=== PATIENT | male | born 1965 | race Caucasian/White ===

== ENCOUNTER 2021-06-28 08:22 | Day surgery (SDCO) | payer OTHER ==
[~2021-06-28] VITALS: Ht 185.4 cm; Wt 129.4 kg
[2021-06-28 09:03] LABS: BASOPHIL 0.4 % (0-2); EOSINOPHIL 2.3 % (0-5); HCT 38.5 % (42.0-52.0); HGB 11.9 g/dl (13.2-18.0); MCH 28.1 pg (25.0-31.0); MCHC 30.9 g/dL (32.0-36.0); MONOCYTE 8.2 % (0-12); MPV 10.6 fL (6.0-9.5); NEUTROPHIL 57.5 % (41-80); NRBC 0; PLT 221 K/uL (150-400); RBC 4.23 M/uL (4.70-6.00); RDW 15.3 % (11.5-14.0); WBC 4.8 K/uL (4.0-10.5)
[2021-06-28 09:08] LABS: ALBUMIN 3.3 g/dL (3.4-5.0); BILIRUBIN - TOTAL 0.8 mg/dL (0.2-1.0); BUN/CREAT RATIO (CALC) 24.8 RATIO; CREATININE 1.05 mg/dL (0.67-1.17); GLOBULIN (CALCULATION) 5.4 g/dL; TOTAL PROTEIN 8.7 g/dL (6.4-8.2)
[2021-06-28 09:25] LABS: LACTIC ACID 1.2 mmol/L (0.4-1.9)
[2021-06-28 13:25] LABS: BILIRUBIN NEGATIVE (NEGATIVE); BLOOD 2+ Ery/uL (NEGATIVE); CLARITY CLEAR (CLEAR); COLOR YELLOW (YELLOW); GLUCOSE (U) NORMAL (NORMAL); LEUKOCYTES NEGATIVE Leu/uL (NEGATIVE); NITRITE NEGATIVE (NEGATIVE); PROTEIN TRACE (LOW) mg/dL (NEGATIVE); SPECIFIC GRAVITY 1.015 (1.001-1.030)
[2021-06-28 13:30] LABS: BACTERIA TRACE; URINARY WBC RARE
[2021-06-28] MEDS ORDERED: LOPRESSOR50 MG PO (17:11)
[2021-06-28] MEDS ORDERED: PLAVIX75 MG PO (17:11)
[2021-06-28] MEDS ORDERED: TIZANIDINE HCL2 M1 PO (17:12)
[2021-06-28] MEDS ORDERED: PEPCID AC20 MG PO (17:21)
[2021-06-28] MEDS ORDERED: SERTRALINE HCL100 MG PO (17:21)
[2021-06-28] MEDS ORDERED: TOPAMAX25 MG PO (17:23)
[2021-06-28] MEDS ORDERED: PRINIVIL10 MG PO (17:24)
[2021-06-28] MEDS ORDERED: NAPROXEN500 MG PO (17:25)
[2021-06-28] MEDS ORDERED: LIPITOR40 MG PO (17:25)
[2021-06-28] MEDS ORDERED: TRIAMCINOLONE 080 GM TOP (17:28)
[2021-06-29 07:27] LABS: BASOPHIL 0.2 % (0-2); EOSINOPHIL 0 % (0-5); HCT 40.2 % (42.0-52.0); LYMPHOCYTE 19.4 % (15-48); MCH 27.8 pg (25.0-31.0); MCHC 29.9 g/dL (32.0-36.0); MCV 93.3 fL (78.0-100.0); MONOCYTE 8.9 % (0-12); MPV 10.5 fL (6.0-9.5); NEUTROPHIL 69.5 % (41-80); NRBC 0; PLT 219 K/uL (150-400); RBC 4.31 M/uL (4.70-6.00); RDW 14.9 % (11.5-14.0); WBC 4.5 K/uL (4.0-10.5)
[2021-06-29 07:37] LABS: BUN/CREAT RATIO (CALC) 31.2 RATIO; C-REACTIVE PROTEIN 7.1 mg/dL (<=0.90); CREATININE 0.77 mg/dL (0.67-1.17); POTASSIUM 3.8 mmol/L (3.5-5.1)
[2021-06-30 04:35] LABS: BASOPHIL 0.2 % (0-2); EOSINOPHIL 0.2 % (0-5); HCT 36.8 % (42.0-52.0); LYMPHOCYTE 17.3 % (15-48); MCH 27.9 pg (25.0-31.0); MCHC 29.9 g/dL (32.0-36.0); MCV 93.4 fL (78.0-100.0); MONOCYTE 7.9 % (0-12); MPV 10.4 fL (6.0-9.5); NEUTROPHIL 73.2 % (41-80); NRBC 0; PLT 232 K/uL (150-400); RBC 3.94 M/uL (4.70-6.00); RDW 14.7 % (11.5-14.0); WBC 6.6 K/uL (4.0-10.5)
[2021-06-30 04:52] LABS: BUN/CREAT RATIO (CALC) 36.8 RATIO; C-REACTIVE PROTEIN 3.3 mg/dL (<=0.90); CREATININE 0.76 mg/dL (0.67-1.17); POTASSIUM 3.5 mmol/L (3.5-5.1)
[2021-07-01] MEDS ORDERED: DEXAMETHASONE 2M2 MG PO (07:57)
[2021-07-01] MEDS ORDERED: ROBITUSSIN W/CODEINE PO (07:57)
[2021-07-01] MEDS ORDERED: TESSALON PERLE100 M1 PO (07:59)
[2021-07-01] MEDS ORDERED: ROBITUSSIN W/COD5 ML PO (07:59)
--- NOTE | 2021-07-01 13:22 | NUR ---
07/01/21 Mr. Prasad is from [place], [place] and staying with his sister, Cathy Prasad [place]der[place] - at [address] [place] [address]. Mr. prasad will be returning to his sister's home at discharge. - Report given to MS KINDRA Thomason
== END 2021-07-01 13:30 | disposition home or self-care (01) ==
LOC: FER 08:22 → FMS 14:15
PROVIDERS: Emergency Medicine; ADMIT Allergy & Immunology Allergy
DX: U07.1 COVID-19 (principal); J12.82 Pneumonia due to coronavirus disease 2019; J96.91 Respiratory failure, unspecified with hypoxia; E11.9 Type 2 diabetes mellitus without complications; I10 Essential (primary) hypertension; I25.10 Atherosclerotic heart disease of native coronary artery without angina pectoris; E78.5 Hyperlipidemia, unspecified; I25.2 Old myocardial infarction; E66.9 Obesity, unspecified; K21.9 Gastro-esophageal reflux disease without esophagitis; F41.9 Anxiety disorder, unspecified; Z95.5 Presence of coronary angioplasty implant and graft; Z87.891 Personal history of nicotine dependence; Z88.5 Allergy status to narcotic agent; Z79.4 Long term (current) use of insulin; Z79.899 Other long term (current) drug therapy
CPT/HCPCS: 36415; 36600; 71045; 71275; 80048; 80053; 81001; 82803; 82962; 83605; 84145; 84484; 85025; 85379; 86140; 87040; 93005; 94010; 94640; 94760; 94762; C9399; G0378; J0360; J1650; J2405; J2930; J3480; J7030; J7050; J8540; Q9967; U0002